=== PATIENT | male | born 2000 | race Caucasian/White ===

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

== ENCOUNTER 2019-10-20 18:35 | Outpatient (REF) | payer SELFPAY ==
[2019-10-22 14:13] LABS: Campylobacter PCR Negative (Negative); Salmonella PCR Negative (Negative); Shiga Toxin PCR Negative (Negative); Shigella/Enteroinvasive Ecoli Negative (Negative)
== END 2019-10-20 18:55 ==
LOC: NCHCN 18:35
PROVIDERS: PCP Physician Assistant; Visit Provider Nurse Practitioner Family
DX: R19.7 Diarrhea, unspecified (principal)
CPT/HCPCS: 87505; 87324

== ENCOUNTER 2019-11-27 16:51 | Outpatient (REF) | payer SELFPAY ==
[2019-11-27 20:02] LABS: Anion Gap 7.1 mmol/L (3-11); BUN 12 mg/dL (7-18); CO2 30.9 mmol/L (21.0-32.0); CREATININE 1.02 mg/dL (0.70-1.30); Calcium 9.4 mg/dL (8.5-10.1); Chloride 100 mmol/L (98-107); Glucose 98 mg/dL (74-106); Potassium 3.8 mmol/L (3.5-5.1); Sodium 138 mmol/L (136-145); TSH 2.48 uIU/mL (0.36-3.74)
[2019-11-30 12:07] LABS: Hepatitis C Ab w Rflx HCV PCR Negative (Negative)
[2019-11-30 12:49] LABS: HSV 1 DNA Result Negative (Negative); HSV 2 DNA Result Negative (Negative); Varicella Zoster DNA Result Negative (Negative)
[2019-11-30 13:30] LABS: Syphilis Serology (RPR) Negative (Negative)
[2019-11-30 14:40] LABS: HIV-1/2 Ag & Ab Screen Negative (Negative)
[2019-12-01 09:09] LABS: GC Result Negative (Negative)
[2019-12-01 10:10] LABS: Chlamydia Result Positive (Negative)
== END 2019-11-27 17:11 ==
LOC: NCHCN 16:51
PROVIDERS: PCP Physician Assistant; Visit Provider Internal Medicine
DX: B00.89 Other herpesviral infection (principal); A63.0 Anogenital (venereal) warts; E03.9 Hypothyroidism, unspecified; Z11.59 Encounter for screening for other viral diseases; Z11.3 Encounter for screening for infections with a predominantly sexual mode of transmission; Z11.4 Encounter for screening for human immunodeficiency virus [HIV]; I10 Essential (primary) hypertension; L40.9 Psoriasis, unspecified
CPT/HCPCS: 80048; 86803; 87389; 87491; 87529; 87591; 87798; 84443; 86592

== ENCOUNTER 2020-03-03 10:33 | Outpatient (REF) | payer SELFPAY ==
[2020-03-07 14:50] LABS: Chlamydia Result Negative (Negative); GC Result Negative (Negative)
== END 2020-03-03 10:53 ==
LOC: NCHCN 10:33
PROVIDERS: PCP Physician Assistant; Visit Provider Physician Assistant
DX: Z11.3 Encounter for screening for infections with a predominantly sexual mode of transmission (principal); Z86.19 Personal history of other infectious and parasitic diseases
CPT/HCPCS: 87491; 87591

== ENCOUNTER 2022-07-06 17:24 | Outpatient (REF) | payer SELFPAY ==
[2022-07-06 19:07] LABS: Abs Immature Grans 0.01 10^3/uL (0.0-0.06); Absolute Basophil Count 0.04 10^3/uL (0.0-0.2); Absolute Eosinophil Count 0.15 10^3/uL (0.0-0.7); Absolute Monocyte Count 0.81 10^3/uL (0.1-0.8); Absolute Neutrophil Count 6.25 10^3/uL (1.2-6.7); Basophils % 0.4; Eosinophils % 1.6; HGB 14.7 g/dL (13.5-17.5); Immature Grans % 0.1; Lymphocytes % 24.8; MCH 27.6 pg (27.0-33.0); MCHC 33.4 % (32.0-36.0); MCV 83 fL (80-95); MPV 9.2 fL (8.0-11.0); Monocytes % 8.4; Neutrophils % 64.7; Platelet Count 308 10^3/uL (130-400); RBC 5.33 10^6/uL (4.36-5.78); RDW 13.4 % (11.8-14.1); RDW-SD 40.1 fL; WBC 9.66 10^3/uL (4.4-10.8)
[2022-07-06 19:34] LABS: ALT 37 U/L (16-63); AST 28 U/L (15-37); Albumin 4.6 g/dL (3.4-5.0); Alkaline Phosphatase 76 U/L (46-116); Anion Gap 8.4 mmol/L (3-11); BUN 7 mg/dL (7-18); Bilirubin, Total 1.3 mg/dL (0.2-1.0); CO2 28.6 mmol/L (21.0-32.0); CREATININE 0.9 mg/dL (0.70-1.30); Calcium 9.3 mg/dL (8.5-10.1); Chloride 102 mmol/L (98-107); Estimated GFR 123.84 (mL/min/1.73m2); Glucose 104 mg/dL (74-106); Potassium 3.7 mmol/L (3.5-5.1); Sodium 139 mmol/L (136-145); TSH (W/Ref FT4) 3.87 uIU/mL (0.36-3.74); Total Protein 8.3 g/dL (6.4-8.2)
[2022-07-06 19:51] LABS: FREE T4 1.22 ng/dL (0.76-1.46)
== END 2022-07-06 17:25 | disposition home or self-care (01) ==
LOC: NCHCN 17:24
PROVIDERS: PCP Physician Assistant; Visit Provider Physician Assistant
DX: E03.9 Hypothyroidism, unspecified (principal); F41.8 Other specified anxiety disorders; I10 Essential (primary) hypertension; R00.2 Palpitations
CPT/HCPCS: 80053; 84439; 84443; 85025

== ENCOUNTER 2022-08-21 18:38 | Outpatient (REF) | payer SELFPAY ==
[2022-08-21 19:23] LABS: TSH 2.09 uIU/mL (0.36-3.74)
== END 2022-08-21 18:39 | disposition home or self-care (01) ==
LOC: NCHCN 18:38
PROVIDERS: PCP Physician Assistant; Visit Provider Physician Assistant
DX: E03.9 Hypothyroidism, unspecified (principal)
CPT/HCPCS: 84443

== ENCOUNTER 2023-04-15 20:11 | Outpatient (REF) | payer SELFPAY ==
[2023-04-17 14:39] LABS: Chlamydia Result Negative (Negative); GC Result Negative (Negative)
== END 2023-04-15 20:12 | disposition home or self-care (01) ==
LOC: NCHCN 20:11
PROVIDERS: PCP Physician Assistant; Visit Provider Physician Assistant
DX: N45.1 Epididymitis (principal); Z11.3 Encounter for screening for infections with a predominantly sexual mode of transmission
CPT/HCPCS: 87491; 87591

== ENCOUNTER 2024-09-04 15:37 | Outpatient (REF) | payer SELFPAY ==
[2024-09-04 19:36] LABS: ALT 46 U/L (16-63); AST 34 U/L (15-37); Albumin 4.5 g/dL (3.4-5.0); Alkaline Phosphatase 87 U/L (46-116); Anion Gap 7.9 mmol/L (3-11); BUN 9 mg/dL (7-18); Bilirubin, Total 0.6 mg/dL (0.2-1.0); CO2 29.1 mmol/L (21.0-32.0); Calcium 9.4 mg/dL (8.5-10.1); Chloride 105 mmol/L (98-107); Estimated GFR 107.78 (mL/min/1.73m2); Glucose 98 mg/dL (74-106); Potassium 3.9 mmol/L (3.5-5.1); Sodium 142 mmol/L (136-145); TSH (W/Ref FT4) 1.83 uIU/mL (0.36-3.74); Total Protein 8.6 g/dL (6.4-8.2)
[2024-09-04 19:46] LABS: Hemoglobin A1C 5.4 % (<5.7)
== END 2024-09-04 15:38 | disposition home or self-care (01) ==
LOC: NCHCN 15:37
PROVIDERS: PCP Physician Assistant; Visit Provider Physician Assistant
DX: E03.9 Hypothyroidism, unspecified (principal); I10 Essential (primary) hypertension; E66.9 Obesity, unspecified
CPT/HCPCS: 80053; 83036; 84443

== ENCOUNTER 2025-06-15 15:41 | Outpatient (REF) | payer SELFPAY ==
[2025-06-15 19:52] LABS: ALT 48 U/L (10-49); AST 39 U/L (<34); Albumin 4.9 g/dL (3.2-5.0); Alkaline Phosphatase 82 U/L (46-116); Anion Gap 8.1 mmol/L (3-11); BUN 12 mg/dL (9-23); Bilirubin, Total 0.6 mg/dL (0.2-1.2); CO2 27.9 mmol/L (20.0-31.0); Calcium 9.5 mg/dL (8.3-10.6); Chloride 103 mmol/L (98-107); Cholesterol 163 mg/dL (<200); Glucose 89 mg/dL (74-106); HDL Cholesterol 45 mg/dL (>40); Potassium 3.8 mmol/L (3.5-5.1); Sodium 139 mmol/L (136-145); Total Protein 8.6 g/dL (5.7-8.2)
[2025-06-15 20:23] LABS: Hemoglobin A1C 5.2 % (<5.7)
== END 2025-06-15 15:42 | disposition home or self-care (01) ==
LOC: NCHCN 15:41
PROVIDERS: PCP Physician Assistant; Visit Provider Nurse Practitioner Family
DX: I10 Essential (primary) hypertension (principal); E66.01 Morbid (severe) obesity due to excess calories
CPT/HCPCS: 80053; 80061; 83036